=== PATIENT | female | born 1985 | race African-American/Black ===

== ENCOUNTER → 2022-03-03 | Emergency (ER) | payer MEDICAID, OTHER ==
[~2022-03-03] VITALS: Ht 165.1 cm; Wt 82.6 kg
[~2022-03-03] MED LIST: COLC1CAP PO; INDO50CA82 PO; KETOROLAC TROMETH 60MG/2ML VIAL IM ONE
[2022-03-03 11:17] VITALS: BP 127/82
== END | disposition home or self-care (01) ==
LOC: ER 10:24
DX: M10.9 Gout, unspecified (principal); I10 Essential (primary) hypertension; Z90.710 Acquired absence of both cervix and uterus
CPT/HCPCS: 73130; 96372; 99283; J1885